=== PATIENT | female | born 1955 | race Hispanic/Latino ===

== ENCOUNTER → 2025-07-03 | Outpatient (CLI) | payer MEDICARE ==
--- NOTE | 2025-07-03 21:56 | HMCIMG ---
EXAM: CR CERVICAL SPINE, 4 VIEW CLINICAL HISTORY: Cervicalgia. COMPARISON: None provided. FINDINGS: BONES: No acute fracture or destructive osseous lesion identified. Vertebral body heights are preserved. DISCS / DEGENERATIVE CHANGES: Moderate degenerative cervical spondylosis characterized by anterior and posterior marginal osteophyte formation, endplate sclerosis, and uncovertebral as well as facet joint degeneration extending from C4???C5 through C7???T1. Intervertebral disc spaces are relatively maintained. Posterior vertebral body alignment is within normal limits. No evidence of spondylolisthesis. SOFT TISSUES: No prevertebral soft tissue swelling. Visualized lung apices are clear. IMPRESSION: * Moderate degenerative cervical spondylosis with anteroposterior marginal osteophytes, endplate sclerosis, and uncovertebral/facet joint arthropathy from C4???C5 through C7???T1. * No acute cervical spine abnormality. /[place]
== END | disposition home or self-care (01) ==
LOC: RAH 11:13
PROVIDERS: ATTEND Nurse Practitioner Adult Health
DX: M47.812 Spondylosis without myelopathy or radiculopathy, cervical region (principal); M25.78 Osteophyte, vertebrae; G95.89 Other specified diseases of spinal cord; M54.2 Cervicalgia
CPT/HCPCS: 72040

== ENCOUNTER → 2025-07-25 | Outpatient (CLI) | payer OTHER, MEDICARE ==
--- NOTE | 2025-07-26 02:51 | HMCIMG ---
EXAM: MR CERVICAL SPINE WITHOUT IV CONTRAST CLINICAL HISTORY: spondylosis without myelopathy or radiculopathy. TECHNIQUE: Multiplanar and multisequence MR images of the cervical spine were obtained without IV contrast administration. CONTRAST: NONE COMPARISON: Prior cervical spine radiograph dated 07/03/2025 is available for comparison which demonstrated cervical spondylosis with multilevel degenerative changes. FINDINGS: VERTEBRAE: Normal vertebral bodies and posterior elements. There is no evidence of fracture. There are multilevel anterior marginal osteophytes in the cervical spine. VERTEBRAL ALIGNMENT: There is reduction of the cervical curvature. There is minimal anterolisthesis at C2-C3 level. Normal, including the craniocervical junction and cervicothoracic junction. No spondylolisthesis. C2/3: Normal disc height and morphology. Normal central canal and neuroforamina. C3/4: Normal disc height and morphology. Normal central canal and neuroforamina. C4/5: There are diffuse disc desiccative changes of Pfirrmann grade 4 with reduction of the disc height at C4-C5 level. C4-C5 level demonstrates a central, left paracentral small sized protrusion causing thecal sac indentation, narrowing of the neural foramen, without exiting nerve root compression. Mild bilateral facet arthropathy is present. C5/6: There are diffuse disc desiccative changes of Pfirrmann grade 4 with reduction of the disc height at C5-C6 level. C5-C6 level demonstrates a central, bilateral foraminal, right greater than left disc protrusion with resultant foraminal narrowing and impingement upon right exiting C6 nerve root. There is mild to moderate bilateral uncovertebral and facet arthropathy present. C6/7: There are diffuse disc desiccative changes of Pfirrmann grade 4 with reduction of the disc height at C6-C7 level. C6-C7 level demonstrates a cystic lesion in either neural foramina, left sided larger than the right, measuring 7 x 14 x 5 mm, suggestive of spinal meningeal cyst. Central and bilateral paracentral disc protrusion in this region causing thecal sac indentation. There is no significant neural foraminal narrowing or nerve root impingement. C7-T1: C7-T1 level demonstrates spinal meningeal cysts on either side neural foramina, left side larger than the right, measuring 7 x 5 mm. Mild facet arthropathy is present at this level bilaterally. No significant neural foraminal narrowing or nerve root impingement. CORD: The visualized posterior fossa structures are unremarkable. The cervico-medullary junction, the cervical and the upper thoracic cord show normal signal intensity and morphology. NECK SOFT TISSUES: IMPRESSION: 1. Multilevel cervical spondylosis with disc protrusions at C4-C5 (central, left paracentral) and C5-C6 (central, bilateral foraminal, right greater than left) levels. The C5-C6 protrusion results in right C6 nerve root impingement. 2. 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 No significant neural foraminal narrowing or nerve root impingement at these levels. 3. Degenerative changes including diffuse disc desiccation with height loss at C4-C5, C5-C6, and C6-C7; multilevel anterior marginal osteophytes; mild bilateral facet arthropathy (C4-C5 and C7-T1) and mild to moderate bilateral uncovertebral and facet arthropathy at C5-C6; minimal anterolisthesis at C2-C3. These findings are stable since the prior x-ray of the cervical spine dated July 03, 2025. /[place]
--- NOTE | 2025-07-26 02:55 | HMCIMG ---
EXAM: US Thyroid. CLINICAL HISTORY: Unspecified hypothyroidism. TECHNIQUE: Real-time ultrasound scan of the thyroid gland and soft tissues of the neck with image documentation. COMPARISON: None provided. FINDINGS: LEFT THYROID LOBE: The left lobe measures 2 x 0.6 x 0.7 cm. It is homogeneous. No nodule. RIGHT THYROID LOBE: The right lobe measures 2.6 x 0.7 x 0.9 cm. It is homogeneous. No nodule. ISTHMUS: The isthmus measures 2 mm. No nodule. OTHER SOFT TISSUES: No incidental findings. IMPRESSION: 1. Normal thyroid gland. /[place]
== END | disposition home or self-care (01) ==
LOC: RAH 12:25
PROVIDERS: ATTEND Nurse Practitioner Adult Health
DX: M50.221 Other cervical disc displacement at C4-C5 level (principal); M50.222 Other cervical disc displacement at C5-C6 level; M50.223 Other cervical disc displacement at C6-C7 level; M47.812 Spondylosis without myelopathy or radiculopathy, cervical region; M47.813 Spondylosis without myelopathy or radiculopathy, cervicothoracic region; M43.8X2 Other specified deforming dorsopathies, cervical region; G96.198 Other disorders of meninges, not elsewhere classified; M48.02 Spinal stenosis, cervical region; E03.9 Hypothyroidism, unspecified; M25.78 Osteophyte, vertebrae
CPT/HCPCS: 72141; 76536